=== PATIENT | male | born 1940 | race African-American/Black ===

== ENCOUNTER 2019-04-23 16:07 | Inpatient (IN) | payer MEDICARE ==
[~2019-04-23] VITALS: Ht 175.3 cm; Wt 64.4 kg
[2019-04-23] MEDS ORDERED: SODIUM CHLORIDE 0.9% 1,000 ML IV ONE (19:33)
[2019-04-23 19:38] LABS: BASOPHILS % 0.3 % (0.0-2.0); EOSINOPHILS % 0.4 % (0.0-5.0); HEMOGLOBIN. 13.6 g/dL (14.0-18.0); LYMPHOCYTES % 13.5 % (20.0-50.0); MEAN CORPUSCULAR HEMOGLOBIN 30.7 pg (28.0-32.0); MEAN CORPUSCULAR VOLUME 90.2 fL (80.0-94.0); MEAN PLATELET VOLUME 9.3 fl (7.4-10.4); MONOCYTES % 7.3 % (2.0-8.0); NEUTROPHILS % 78.5 % (40.0-76.0); PLATELET 219 x1000/uL (130-400); RED BLOOD CELL COUNT 4.43 mill/uL (4.7-6.1); RED CELL DISTRIBUTION WIDTH 13.1 % (11.6-14.6)
[2019-04-23 20:09] LABS: CLARITY URINE CLEAR (CLEAR); COLOR URINE YELLOW (YELLOW); KETONES URINE NEGATIVE (NEGATIVE); LEUKOCYTE ESTERASE URINE NEGATIVE (NEGATIVE); NITRITE URINE NEGATIVE (NEGATIVE); OCCULT BLOOD URINE NEGATIVE (NEGATIVE); PH URINE 6.5 (4.5-8.0); PROTEIN URINE NEGATIVE (NEGATIVE); SPECIFIC GRAVITY URINE 1.003 (1.005-1.030); UROBILINOGEN URINE 0.2 E.U./dL (0.2-1.0)
[2019-04-23 20:28] LABS: CHLORIDE 102 mEq/L (98-107)
[2019-04-23] MEDS ORDERED: ASPIRIN 325MG EC TABLET PO ONE (21:30)
[2019-04-24 02:45] VITALS: BP 130/66
[2019-04-24] MEDS ORDERED: ASPI-1079 PO (03:58)
[2019-04-24] MEDS ORDERED: LORAZEPAM 2MG/ML CPJ IV PRN (06:45)
[2019-04-24] MEDS ORDERED: LORAZEPAM 1MG TABLET PO PRN (08:30)
[2019-04-24] MEDS: ENOXAPARIN 40MG/0.4ML SYR SUBCUT SCH (09:00)
[2019-04-24] MEDS: ASPIRIN 81MG TABLET PO SCH (09:27)
[2019-04-24 12:00] VITALS: BP 104/71
[2019-04-24] MEDS ORDERED: HYDROCODONE/ACETAMINOPHEN 5/325MG TABLET PO PRN (15:45)
[2019-04-24] MEDS ORDERED: ONDANSETRON HCL 4MG/2ML INJ IV PRN (15:45)
[2019-04-24] MEDS ORDERED: HYDRALAZINE 20MG/ML VIAL IV PRN (15:45)
[2019-04-24] MEDS ORDERED: DIPHENHYDRAMINE 50MG/ML VIAL IV PRN (15:45)
[2019-04-24] MEDS ORDERED: DOCUSATE SODIUM 100MG CAPSULE PO PRN (15:45)
[2019-04-24 15:55] LABS: CREATINE KINASE 910 IU/L (39-308)
[2019-04-24 15:56] LABS: CREATINE KINASE MB FRACTION 7.5 ng/mL (0.5-3.6)
[2019-04-24 16:00] VITALS: BP 114/67
[2019-04-24 20:00] VITALS: BP_SYST 110; BP_SYST 114; BP_SYST 126; BP_DIAS 45; BP_DIAS 69; BP_DIAS 74
[2019-04-25] VITALS: BP 126/68
[2019-04-25 00:35] LABS: CREATINE KINASE 764 IU/L (39-308)
[2019-04-25 00:37] LABS: CREATINE KINASE MB FRACTION 5.3 ng/mL (0.5-3.6)
[2019-04-25 04:00] VITALS: BP 115/58
[2019-04-25 07:43] LABS: BASOPHILS % 0.4 % (0.0-2.0); EOSINOPHILS % 1.8 % (0.0-5.0); HEMATOCRIT. 35.1 % (42.0-52.0); HEMOGLOBIN. 11.8 g/dL (14.0-18.0); LYMPHOCYTES % 19.4 % (20.0-50.0); MEAN CORPUSCULAR HEMOGLOBIN 30.3 pg (28.0-32.0); MEAN CORPUSCULAR VOLUME 90.2 fL (80.0-94.0); MEAN PLATELET VOLUME 10.1 fl (7.4-10.4); MONOCYTES % 10.6 % (2.0-8.0); NEUTROPHILS % 67.8 % (40.0-76.0); PLATELET 199 x1000/uL (130-400); RED CELL DISTRIBUTION WIDTH 13.1 % (11.6-14.6)
[2019-04-25 07:51] LABS: CHLORIDE 104 mEq/L (98-107)
[2019-04-25 08:00] VITALS: BP 103/59
[2019-04-25] MEDS ORDERED: POTASSIUM CHLORIDE 20MEQ TABLET SR PO SCH (11:30)
[2019-04-25] MEDS: ASPIRIN 81MG TABLET PO SCH (11:32)
[2019-04-25] MEDS: ENOXAPARIN 40MG/0.4ML SYR SUBCUT SCH (11:34)
[2019-04-25 12:00] VITALS: BP_SYST 109; BP_SYST 114; BP_DIAS 52; BP_DIAS 73
[2019-04-25 16:00] VITALS: BP 106/61
[2019-04-25 16:01] VITALS: BP 103/42
== END 2019-04-25 16:45 | disposition home or self-care (01) | DRG 74 ==
LOC: ER 16:07 → 7WST 22:52 → EDBEDREQ 22:54 → EDBEDREQTM 22:54 → ENRESERV 04-24 01:53
PROVIDERS: ADMIT Internal Medicine; ATTEND Internal Medicine
DX: G90.9 Disorder of the autonomic nervous system, unspecified (principal); G93.40 Encephalopathy, unspecified; I10 Essential (primary) hypertension; D64.9 Anemia, unspecified; F03.90 Unspecified dementia, unspecified severity, without behavioral disturbance, psychotic disturbance, mood disturbance, and anxiety; E87.6 Hypokalemia; R00.1 Bradycardia, unspecified; T50.905A Adverse effect of unspecified drugs, medicaments and biological substances, initial encounter; Y92.89 Other specified places as the place of occurrence of the external cause; Z88.0 Allergy status to penicillin
CPT/HCPCS: 36415; 71045; 80048; 82550; 82553; 82962; 83735; 83880; 84443; 84484; 85379; 93005; 93306; 93880; 93970; 96360; 97162; 99285; J1650; J7030

== ENCOUNTER 2023-09-17 23:50 | Emergency (ER) | payer MEDICARE, OTHER ==
[~2023-09-17] VITALS: Ht 177.8 cm; Wt 77.0 kg
[~2023-09-17 23:50] MED LIST: ASPI-1079 PO
[2023-09-18 00:03] VITALS: BP 0/0; PULSE 0; RESP 0; TEMP 98.1; O2SAT 0
== END 2023-09-18 ==
LOC: ER 23:50
DX: I46.9 Cardiac arrest, cause unspecified (principal); J96.90 Respiratory failure, unspecified, unspecified whether with hypoxia or hypercapnia; Z88.0 Allergy status to penicillin
CPT/HCPCS: 31500; 92950; 99285; 99291